=== PATIENT | male | born 1980 | race Caucasian/White ===

== ENCOUNTER → 2020-07-22 | Day surgery (SDC) | payer OTHER ==
[~2020-07-22] MED LIST: FENOFIBRATE145 MG PO; HYDROCODON-ACE1 EAC4 PO
[2020-07-22 07:20] LABS: HEMOGLOBIN 15.5 gm/dl (14.0-17.5); RED BLOOD COUNT 4.97 M/UL (4.20-5.50); WHITE BLOOD COUNT 6.3 K/UL (4.5-11.0)
== END | disposition home or self-care (01) ==
LOC: OR 06:04
PROVIDERS: Orthopaedic Surgery
PROC: 01N50ZZ Release Median Nerve, Open Approach (ICD-10-PCS; principal; 2020-07-22 07:30)
DX: G56.03 Carpal tunnel syndrome, bilateral upper limbs (principal); E78.5 Hyperlipidemia, unspecified; Z87.891 Personal history of nicotine dependence; Z20.822 Contact with and (suspected) exposure to COVID-19; Z79.899 Other long term (current) drug therapy
CPT/HCPCS: 85027; J1100; J1885; J2001; J2250; J2405; J2704; J3010; J7120